=== PATIENT | male | born 2005 ===

== ENCOUNTER 2024-03-17 03:15 | Emergency (ER) | payer OTHER, SELFPAY ==
[2024-03-17 03:22] VITALS: BP 151/69; PULSE 77; RESP 16; TEMP 37.1; O2SAT 98; BMI 22.4
--- NOTE | 2024-03-17 03:25 | PC.NURSE ---
pt states he thinks he has an infection in his left eye eye has been red, and teary since last Saturday, but tonight the itching increased in severity, he has been using otc eye drops without relief
--- NOTE | 2024-03-17 03:26 | ED.EYEPROB ---
HPI - Eye Problem General Chief complaint: Eye Problems Stated complaint: L EYE Infection/Head cold Time Seen by Provider: 03/17/24 03:19 History of Present Illness HPI Narrative: 19-year-old male presents for possible left eye infection and possible head cold. Patient wears contacts at baseline and reports significant left eye itching and irritation. Denies foreign body sensation. Presenting today due to significant itching. Reports some crusting in his left eye when he wakes in the morning. Denies vision changes. Related Data Previous Rx's Medication Instructions Recorded ofloxacin 0.3 % eye drops 2 drp EYE-LEFT .asdir #5 mL 03/17/24 Exam Initial Vital Signs Initial Vital Signs: Vital Signs Temperature 98.8 F 03/17/24 03:22 Pulse Rate 77 03/17/24 03:22 Respiratory Rate 16 03/17/24 03:22 Blood Pressure 151/69 H 03/17/24 03:22 Pulse Oximetry 98 03/17/24 03:22 Oxygen Delivery Method Room Air 03/17/24 03:22 Const: Awake, alert, no acute distress, nontoxic appearing Eye: PERRLA, EOMI, no fluorescein uptake. Left eye with conjunctival injection and erythema, no obvious crusting Cardiac: regular rate, regular rhythm RESP: unlabored, clear bilaterally, no wheezing Skin: Warm, Dry, intact, no rashes Neuro: AO x3, CN II-XII grossly intact, moves all extremities Course Orders Ordered: Discontinued Medications Diphtheria/Tetanus/Acell Pertussis (Tet,Diph,Pertuss(Acell),Vac/Pf 0.5 Ml Syringe) 0.5 ml IM .ONCE ONE Stop: 03/17/24 03:20 Last Admin: 03/17/24 03:27 Dose: Not Given Documented By: Proparacaine HCl (Proparacaine 0.5% Ophth Mayra) 1 drops EYE-LEFT NOW ONE Stop: 03/17/24 03:27 Last Admin: 03/17/24 03:31 Dose: 1 drop Documented By: Vital Signs Vital signs: Vital Signs - 8 hr 03/17/24 03:22 Temperature 98.8 F Pulse Rate 77 Respiratory Rate 16 Blood Pressure 151/69 H Pulse Oximetry 98 Oxygen Delivery Method Room Air MDM - Eye Problem MDM Narrative Medical decision making narrative: Well-appearing patient with 4 days left eye irritation. No fluorescein uptake or foreign body visualized to suggest corneal abrasion. Suspect this is more likely allergic based on the presence of itching, however since patient does wear contacts and symptoms are unilateral we will treat with topical antibiotic drops. Patient counseled to discard his current set of contacts and to wear glasses while he was undergoing treatment. For itching recommended [id number] antihistamine drops such as olopatadine Discharge Plan Departure Patient Disposition: Home Clinical Impression: Irritation of left eye Instructions: DI for Red Eye Activity Restrictions/Additional Instructions: You may use [id number] anti-itch drops containing the active ingredient Olopatadine (Patanol, Pazeo, Pataday) for itching. Use the antibiotic drops as prescribed. Get rid of your current contacts and do not wear new contacts while you are taking antibiotic drops. When you are finished with the antibiotic drops you need a fresh contact case and new contacts. Wear glasses while using antibiotic drops Prescriptions: New ofloxacin 0.3 % drops 2 drp EYE-LEFT .asdir Qty: 5 0RF Rx Instructions: 1-2 drops every 2-4 hours while awake for 2 days THEN 4 times daily for 5 days Stand Alone Forms: Patient Portal/API, Work Release Note
[2024-03-17] MEDS: PROPARACAINE 0.5% OPHTH SOL 1 DROPS EYE-LEFT (03:31)
== END 2024-03-17 03:58 | disposition home or self-care (01) ==
LOC: ED 03:47
PROVIDERS: Emergency Provider Emergency Medicine
DX: H57.12 Ocular pain, left eye (principal)
CPT/HCPCS: 99282

== ENCOUNTER → 2024-12-13 13:17 | Outpatient (CLI) | payer OTHER, SELFPAY ==
[2024-12-13 14:30] LABS: Influenza A - CEPHEID Flu A POSITIVE (NEGATIVE); Influenza B - CEPHEID Flu B NEGATIVE (NEGATIVE); Respiratory Syncytial Virus Negative (Negative)
[2024-12-13 14:31] LABS: COVID-19 CEPHEID 4-PLEX PCR Negative (Negative)
== END ==
PROVIDERS: Visit Provider Physician Assistant Surgical
DX: J02.9 Acute pharyngitis, unspecified (principal); R50.9 Fever, unspecified
CPT/HCPCS: 0241U; 87070